=== PATIENT | female | born 1990 | race Caucasian/White ===

== ENCOUNTER 2018-03-14 18:39 | Emergency (ER) | payer OTHER ==
[~2018-03-14] VITALS: Ht 165.1 cm; Wt 108.9 kg
[2018-03-14] MEDS ORDERED: BIRTH CONTROL (18:51)
[2018-03-14] MEDS ORDERED: VOLTAREN GEL 1100 G2 TOP (20:28)
[2018-03-14 20:52] VITALS: BP 134/74
== END 2018-03-14 20:53 | disposition home or self-care (01) ==
LOC: M.ERS 18:39
DX: O9A.211 Injury, poisoning and certain other consequences of external causes complicating pregnancy, first trimester (principal); Z3A.08 8 weeks gestation of pregnancy; S62.391A Other fracture of second metacarpal bone, left hand, initial encounter for closed fracture; S62.393A Other fracture of third metacarpal bone, left hand, initial encounter for closed fracture; V89.2XXA Person injured in unspecified motor-vehicle accident, traffic, initial encounter; Y93.89 Activity, other specified; Y92.89 Other specified places as the place of occurrence of the external cause; Y99.8 Other external cause status